=== PATIENT | male | born 1965 ===

== ENCOUNTER 2017-08-27 15:49 | Emergency (ER) | payer SELFPAY ==
[~2017-08-27] VITALS: Ht 188 cm; Wt 102.1 kg
[2017-08-27] MEDS ORDERED: FLUCELVAX QUAD 2017-2018 SYR (16:00)
[2017-08-27] MEDS ORDERED: PAROXETINE 25 MG (16:00)
[2017-08-27] MEDS ORDERED: TRAZODONE 150 MG TABLET (16:00)
[2017-08-27] MEDS ORDERED: LITH450T2 PO (16:01)
[2017-08-27] MEDS ORDERED: KETOROLAC TROMETHAMINE 30 MG INJ IM ONE (16:15)
[2017-08-27] MEDS ORDERED: KETOROLAC TROMETHAMINE 30 MG INJ ONE (16:29)
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
--- NOTE | 2017-08-27 16:44 | NUR ---
DC, RX AND FOLLOW UP INSTRUCTIONS GIVEN AND EXPLAINED TO PATIENT WHO STATES HE UNDERSTANDS ALL INSTRUCTIONS INCLUDING [employer] PRECAUTIONS
== END 2017-08-27 16:45 | disposition home or self-care (01) ==
LOC: ER 15:53
DX: S13.4XXA Sprain of ligaments of cervical spine, initial encounter (principal); S09.90XA Unspecified injury of head, initial encounter; S39.92XA Unspecified injury of lower back, initial encounter; J45.909 Unspecified asthma, uncomplicated; Z79.891 Long term (current) use of opiate analgesic; Z79.899 Other long term (current) drug therapy; V43.62XA Car passenger injured in collision with other type car in traffic accident, initial encounter; Y93.89 Activity, other specified; Y92.410 Unspecified street and highway as the place of occurrence of the external cause; Y99.8 Other external cause status
CPT/HCPCS: A4663; J1885